=== PATIENT | male | born 1950 | race Caucasian/White ===

== ENCOUNTER 2017-06-23 06:58 | Day surgery (SDC) | payer BC, OTHER ==
--- NOTE | 2017-06-04 11:30 | HP ---
DATE OF ADMISSION: 06/23/2017 DATE OF DICTATION: 05/13/2017 Patient to be admitted to the [facility] in the near future, date to be determined. HISTORY: This is a 67-year-old man admitted through the Ambulatory Surgical Service at [facility] for excision of a soft tissue mass involving the right forehead. According to the patient, the mass has been there for some time. It had recently become larger in size and apparently was partially drained by his PMD. He describes a whitish material being expressed from the lesion itself. Patient's past medical history is significant for hypertension and hypercholesterolemia. No history of heart disease; diabetes; respiratory, renal or hepatic insufficiency. Past surgical history significant for excision of a soft tissue mass of the posterior neck, consistent with lipoma. ALLERGIES: PENICILLIN. REGULAR MEDICATIONS: Antihypertensives and hypercholesterolemics. SOCIAL HISTORY: Negative tobacco. Patient did smoke in the past. Positive alcohol, a glass of wine nightly. FAMILY HISTORY: Nil. REVIEW OF SYSTEMS: Nil. On inspection, the patient has an obvious 1.5-cm soft tissue mass over the pretemporal region of the right forehead. There is a shallow ulcer in the center of the mass. There are no satellite lesions or regional lymphadenopathy. IMPRESSION: Soft tissue mass, right forehead. Based on the patient's history, suspect epidural inclusion cyst. Cannot rule out some squamous cell neoplasia. PLAN: Patient to undergo excision, right forehead mass, under local anesthesia with sedation. Indications, alternatives, possible complications reviewed. Consent obtained. Patient to be seen preoperatively by Dr. Sam Leger. Please refer to his notes for those medical details. Babar BONILLA/[id number] cc: Sam Leger MD
[2017-06-23 07:32] VITALS: BMI 28.7
[2017-06-23] MEDS ORDERED: LIDOCAINE 1%/EPI 1:100000 (20 ML MULTI DOSE VIAL) ONE (07:43)
[2017-06-23] MEDS ORDERED: PROPOFOL 20 ML ONE (08:20)
[2017-06-23] MEDS ORDERED: LEVOFLOXACIN 25 MG/1 ML (20 ML VIAL) IVPB ONE (08:25)
[2017-06-23] MEDS ORDERED: LIDOCAINE 1%/EPI 1:100000 (50 ML MULTI DOSE VIAL) INF ONE ×2 (08:39)
[2017-06-23] MEDS ORDERED: BACITRACIN 15 GM TUBE TOPICAL OINTMENT ONE (08:46)
[2017-06-23 09:08] VITALS: PULSE 82; TEMP 97.7
[2017-06-23 09:30] VITALS: BP 113/62
--- NOTE | 2017-06-23 09:39 | OP ---
DATE OF OPERATION: 06/23/2017 PREOPERATIVE DIAGNOSIS: Soft tissue mass, right forehead. POSTOPERATIVE DIAGNOSIS: Soft tissue mass, right forehead (suspect epidermal inclusion cyst) . PROCEDURE: Excision, soft tissue mass, right forehead, intermediate wound closure (3 cm). OPERATING SURGEON: Ryan Sorto MD ANESTHESIA: Denisa Fraga MD (Local/MAC). HISTORY: A 67-year-old man with progressive enlargement of a 1.5-cm soft tissue mass of the right forehead closer to the methodist region. Presents for excision. Indications, alternatives, possible complications reviewed. Consent obtained. PROCEDURE: With the patient in the supine position, and with the head turned to the left, the right methodist area was prepped and draped in sterile fashion using Betadine. A 3-cm elliptical incision was made about the lesion and deepened into the subcutaneous space. The lesion was excised in its entirety with a rim of normal-appearing surrounding skin and underlying subcutaneous tissue. The wound was then irrigated and adequate hemostasis ensured. The wound was closed in layers. The deeper subcutaneous tissues were approximated using interrupted 3-0 chromic sutures. The subcuticular layer was approximated using interrupted 4-0 Biosyn sutures. The skin edges were approximated using continuous 5-0 nylon suture. Bacitracin applied. Procedure terminated. Needle and instrument counts correct. ESTIMATED BLOOD LOSS: Minimal. SPECIMEN: Soft tissue mass, right forehead. DRAINS: None. Patient tolerated procedure. The procedure was terminated. RYAN SORTO M.D. [id number] MTDD
--- NOTE | 2017-06-24 16:21 | PATH ---
Surgical Pathology Report Patient Name: [facility]. Rec. #: [id number] /Age/Gender: 1950 (Age: 67) / M Account: [id number] Location: [facility] AMB[facility] Taken: 06/23/2017 Received: 06/23/2017 Reported: 06/24/2017 Physicians: Ryan Sorto M.D. Specimen(s) Received SOFT TISSUE MASS, RIGHT FOREHEAD Clinical History Benign neoplasm/soft tissue mass right forehead Final Diagnosis FOREHEAD, RIGHT, SOFT TISSUE MASS, EXCISION: SEBORRHEIC KERATOSIS. Electronically Signed Ava Stock M.D. Gross Description Received in formalin labeled "soft tissue mass right forehead," is a 2.5 x 1.2 x 0.8 cm focally disrupted cystic structure. Bench Grinder sections are submitted in one cassette. /06/23/201706/23/2017
== END 2017-06-23 09:29 | disposition home or self-care (01) ==
LOC: FASU 06:58
PROVIDERS: ATTEND Surgery
PROC: 0JQ10ZZ Repair Face Subcutaneous Tissue and Fascia, Open Approach (ICD-10-PCS; 2017-06-23)
PROC: 0JB10ZX Excision of Face Subcutaneous Tissue and Fascia, Open Approach, Diagnostic (ICD-10-PCS; principal; 2017-06-23 08:29)
DX: D21.0 Benign neoplasm of connective and other soft tissue of head, face and neck (principal)
CPT/HCPCS: 88305-TC

== ENCOUNTER 2018-03-07 10:43 | Emergency (ER) | payer OTHER, BC ==
[2018-03-07 11:06] VITALS: BP 157/97; PULSE 90; TEMP 97.9; BMI 27.8
[2018-03-07] MEDS ORDERED: FLUORESCEIN NA 1 EA STRIP ONE (11:06)
[2018-03-07] MEDS ORDERED: TETRACAINE 0.5% OPHTH SOLN 2 ML BOTTLE ONE (11:06)
--- NOTE | 2018-03-07 11:32 | PDOC ---
History of Present Illness - General Chief Complaint: Eye Problem Stated Complaint: LEFT EYE PAIN Time Seen by Provider: 03/07/18 10:54 History Source: Patient Exam Limitations: No Limitations - History of Present Illness Initial Comments: 03/07/18 11:35 67y M presents with L eye pain. 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 he denies any blurry vision, nauasa.vomting. endorses pain in his Left eye. Past History - Past Medical History Allergies/Adverse Reactions: Allergies Allergy/AdvReac Type Severity Reaction Status Date / Time Penicillins Allergy Rash Verified 03/07/18 10:58 Home Medications: Ambulatory Orders Acetaminophen W/ Codeine #3 [Tylenol # 3 -] 1 tab PO Q4H PRN #12 tablet MDD 1 Ofloxacin 0.3% Ophth Soln [Ocuflox -] 1 drop OS QID 4 Days #1 bottle 03/07/18 Anemia: No Asthma: No Cancer: No Cardiac Disorders: No CVA: No COPD: No CHF: No Dementia: No Diabetes: No GI Disorders: No Disorders: No HTN: Yes Hypercholesterolemia: Yes Liver Disease: No Seizures: No Thyroid Disease: No - Surgical History Abdominal Surgery: No Appendectomy: No Cardiac Surgery: No Cholecystectomy: No Lung Surgery: No Neurologic Surgery: No Orthopedic Surgery: No - Suicide/Smoking/Psychosocial Hx Smoking History: Former smoker Have you smoked in the past 12 months: No If you are a former smoker, when did you quit?: 1994 Information on smoking cessation initiated: No Hx Alcohol Use: No Drug/Substance Use Hx: No Substance Use Type: None Hx Substance Use Treatment: No Review of Systems - Review of Systems Able to Perform ROS?: Yes Comments:: 03/07/18 11:36 Constitutional - no reported Fever, Chills, HEENT: +eye pain no reported vision changes, sore throat Abd/GI: no reported nausea, vomiting, neurological: no reported headache, hematologic: no reported easy bruising, easy bleeding *Physical Exam - Vital Signs Last Vital Signs Temp Pulse Resp BP Pulse Ox 97.9 F 90 16 157/97 100 03/07/18 10:44 03/07/18 10:44 03/07/18 10:44 03/07/18 10:44 05/21/18 10:44 - Physical Exam Comments: 03/07/18 11:37 GENERAL: The patient is awake, alert, and fully oriented, Nontoxic - in no acute distress. HEAD: Normocephalic, atraumatic. EYES: extraocular movements intact, sclera anicteric, conjunctiva clear, No FB noted including under lids, +3x3 area of flouriscene uptake on the cornea approx 5 o clock position, neg seidels sign ENT: Normal voice, Moist mucous membranes. NECK: Normal range of motion, supple Moderate Sedation - Procedure Monitoring Vital Signs: Vital Signs Temp Pulse Resp BP Pulse Ox 97.9 F 90 16 157/97 100 03/07/18 10:44 03/07/18 10:44 03/07/18 10:44 03/07/18 10:44 03/07/18 10:44 Medical Decision Making - Medical Decision Making 03/07/18 11:38 +corneal abrasion will give abx, tylenol 3 for pain control will have pt fu with optho return precutions were disussed I discussed the physical exam findings, ancillary test results and final diagnoses with the patient. I answered all of the patient's questions. The patient was satisfied with the care received and felt comfortable with the discharge plan and treatment plan. The patient will call their primary care physician within 24 hours to arrange follow-up and will return to the Emergency Department with any new, persistent or worsening symptoms. *DC/Admit/Observation/Transfer Diagnosis at time of Disposition: Corneal abrasion, left Qualifiers: Encounter type: initial encounter Qualified Code(s): S05.02XA - Injury of conjunctiva and corneal abrasion without foreign body, left eye, initial encounter - Discharge Dispostion Disposition: HOME Condition at time of disposition: Improved Decision to Admit order: No - Referrals Referrals: Clay Anthony MD [Staff Physician] - - Patient Instructions Printed Discharge Instructions: DI for Corneal Abrasion Additional Instructions: Return to the emergency department immediately with ANY new, persistent or worsening symptoms including any changes in your vision, headache, nausea/ vomiting or other concerns. Continue using the drops to prvent infection. Take the percocet as needed for pain. You MUST call and follow up with your eye doctor in 1-2 days for further evaluation of your symptoms. Results were discussed with you. Please make sure your doctor reviews the results of your emergency evaluation. - Post Discharge Activity Forms/Work/School Notes: Back to Work
[2018-03-07] MEDS ORDERED: ACETAMINOPHEN 325 MG TABLET (FP) PO ONE (11:44)
[2018-03-07] MEDS ORDERED: ACETAMINOPHEN 325 MG TABLET (FP) ONE (11:44)
== END 2018-03-07 11:46 | disposition home or self-care (01) ==
LOC: FER 10:43
DX: S05.02XA Injury of conjunctiva and corneal abrasion without foreign body, left eye, initial encounter (principal); W22.8XXA Striking against or struck by other objects, initial encounter; Y93.89 Activity, other specified; Y92.410 Unspecified street and highway as the place of occurrence of the external cause; Z87.891 Personal history of nicotine dependence; I10 Essential (primary) hypertension; E78.00 Pure hypercholesterolemia, unspecified
CPT/HCPCS: 99281-25

== ENCOUNTER 2018-07-06 07:57 | Day surgery (SDC) | payer BC ==
[2018-06-27 16:41] VITALS: BMI 29.8
[2018-07-06] MEDS: TROPICAMIDE 1% OPHTH SOLN 15 ML BOTTLE ONE ×3 (08:20→08:30)
[2018-07-06] MEDS: CIPROFLOXACIN 0.3% EYE DROPS 5 ML BOTTLE ONE ×3 (08:20→08:30)
[2018-07-06] MEDS: CYCLOPENTOLATE 2% OPHTH SOLN 2 ML BOTTLE ONE ×3 (08:20→08:30)
[2018-07-06] MEDS: PHENYLEPHRINE 2.5% OPHTH SOLN 15 ML BOTTLE ONE ×3 (08:20→08:30)
[2018-07-06] MEDS ORDERED: MIDAZOLAM HCL 2 MG/2 ML SINGLE DOSE VIAL ONE (10:00)
[2018-07-06] MEDS ORDERED: BSS (NA/CA/MG/K) BALANCED SALT SOLUTION OPHTH SOLN 15 ML BOTTLE ONE (10:04)
[2018-07-06] MEDS ORDERED: CARBACHOL 0.01% INTRA-OCULAR 1.5 ML VIAL ONE (10:04)
--- NOTE | 2018-07-06 11:47 | OP ---
DATE OF OPERATION: 07/06/2018 OPERATIVE PROCEDURE: Lens Phacoemulsification with Posterior Chamber Intraocular Lens Placement Left Eye PREOPERATIVE DIAGNOSIS: Visually Significant Cataract of Left Eye POSTOPERATIVE DIAGNOSIS: Visually Significant Cataract of Left Eye SURGEON: Sebastian Lara M.D. ANESTHESIA: MAC ANESTHESIOLOGIST: PROCEDURE: The patient was brought to the operating room and placed under monitored anesthesia care by Anesthesia. A drop of Tetracaine was then placed over the left eye. The patient was then prepped and draped in the usual sterile manner. A speculum was then placed over the left eye. The eye was then well irrigated with copious amounts of BSS (balanced salt solution). The operating microscope was then moved into position. A paracentesis was performed using a 15 degree blade. At this point 0.5 mL of 1% preservative-free lidocaine was injected into the anterior chamber. Amvisc plus was then injected into the anterior chamber. A clear corneal incision was then formed using a 2.2 mm keratome. A capsulorrhexis was then performed in a continuous circular fashion beginning with a cystotome, completed with an Utratas forceps. Hydrodissection was then performed using BSS on a cannula. The phaco probe was then introduced through the corneal wound and the cataract was removed using the phaco chop technique. Approximately 3 seconds of absolute phaco time was used. The remaining cortex was then removed using irrigation and aspiration with an I/A probe. The capsule was then filled with regular Amvisc and the capsule was noted to be intact. A previously selected foldable posterior chamber intraocular lens was then injected into the capsule through the corneal wound using a lens injector. It was then dialed into position using a Sinskey hook. The Amvisc was then removed using irrigation and aspiration. Miostat was then injected through the paracentesis to constrict the pupil. The paracentesis and corneal wound were then hydrated and noted to be water tight. A drop of Maxitrol was then placed over the eye. The speculum was removed and clear shield was taped over the eye. The patient tolerated the procedure well and there were no surgical complications. The patient was asked to follow up in my office the next day. SEBASTIAN LARA M.D. [id number]
[2018-07-06 12:04] VITALS: TEMP 98.5
[2018-07-06 12:10] VITALS: BP 125/70; PULSE 82
== END 2018-07-06 11:50 | disposition home or self-care (01) ==
LOC: FASU 07:57
PROVIDERS: ATTEND Ophthalmology
PROC: 08RK3JZ Replacement of Left Lens with Synthetic Substitute, Percutaneous Approach (ICD-10-PCS; principal; 2018-07-06 10:39)
DX: H26.8 Other specified cataract (principal)

== ENCOUNTER 2018-07-21 06:31 | Day surgery (SDC) | payer BC, OTHER ==
[2018-07-18 10:42] VITALS: BMI 30.1
[2018-07-21] MEDS: CYCLOPENTOLATE 2% OPHTH SOLN 2 ML BOTTLE ONE ×3 (07:00→07:10)
[2018-07-21] MEDS: PHENYLEPHRINE 2.5% OPHTH SOLN 15 ML BOTTLE ONE ×3 (07:00→07:10)
[2018-07-21] MEDS: CIPROFLOXACIN 0.3% EYE DROPS 5 ML BOTTLE ONE ×3 (07:00→07:10)
[2018-07-21] MEDS: TROPICAMIDE 1% OPHTH SOLN 15 ML BOTTLE ONE ×3 (07:00→07:10)
[2018-07-21] MEDS ORDERED: TETRACAINE 0.5% OPHTH SOLN 2 ML BOTTLE ONE (07:05)
[2018-07-21] MEDS ORDERED: LIDOCAINE 1% P/F 10 MG/ML VIAL ONE (07:05)
[2018-07-21] MEDS ORDERED: CARBACHOL 0.01% INTRA-OCULAR 1.5 ML VIAL ONE (07:06)
[2018-07-21] MEDS ORDERED: NEO/POLYMYX B SULF/DEXAMETH OPHTHALMIC 5ML BOTTLE ONE (07:06)
[2018-07-21] MEDS ORDERED: BSS (NA/CA/MG/K) BALANCED SALT SOLUTION OPHTH SOLN 15 ML BOTTLE ONE ×2 (07:06→07:43)
[2018-07-21] MEDS ORDERED: EPINEPHrine/PF 1 MG/1 ML (1:1,000) AMPULE ONE (07:09)
[2018-07-21] MEDS ORDERED: BSS (NA/CA/MG/K) BALANCED SALT SOLUTION OPHTH SOLN 15 ML BOTTLE OD ONE ×2 (07:22→08:30)
[2018-07-21] MEDS ORDERED: CARBACHOL 0.01% INTRA-OCULAR 1.5 ML VIAL IO ONE ×2 (07:22→08:30)
[2018-07-21] MEDS ORDERED: NEO/POLYMYX B SULF/DEXAMETH OPHTHALMIC 5ML BOTTLE OD ONE ×2 (07:22→08:40)
[2018-07-21] MEDS ORDERED: MIDAZOLAM HCL 2 MG/2 ML SINGLE DOSE VIAL ONE ×2 (07:44)
[2018-07-21] MEDS ORDERED: SUCCINYLCHOLINE CHLORIDE 200 MG/10 ML VIAL ONE (07:44)
[2018-07-21] MEDS ORDERED: TETRACAINE 0.5% HCL 0.6ML DROPPER.BOTTLE OD ONE (08:20)
[2018-07-21 08:54] VITALS: PULSE 77; TEMP 97.6
--- NOTE | 2018-07-21 09:20 | OP ---
DATE OF OPERATION: 07/21/2018 OPERATIVE PROCEDURE: Lens Phacoemulsification with Posterior Chamber Intraocular Lens Placement, Right Eye PREOPERATIVE DIAGNOSIS: Visually Significant Cataract of Right Eye POSTOPERATIVE DIAGNOSIS: Visually Significant Cataract of Right Eye SURGEON: Sebastian Lara M.D. ANESTHESIA: MAC ANESTHESIOLOGIST: PROCEDURE: The patient was brought to the operating room and placed under monitored anesthesia care by Anesthesia. A drop of Tetracaine was then placed over the right eye. The patient was then prepped and draped in the usual sterile manner. A speculum was then placed over the right eye. The eye was then well irrigated with copious amounts of BSS (balanced salt solution). The operating microscope was then moved into position. A paracentesis was performed using a 15 degree blade. At this point 0.5 mL of 1% preservative free-lidocaine was injected into the anterior chamber. Amvisc plus was then injected into the anterior chamber. A clear corneal incision was then formed using a 2.2 mm keratome. A capsulorrhexis was then performed in a continuous circular fashion beginning with a cystotome completed with an Utratas forceps. Hydrodissection was then performed using BSS on a cannula. The phaco probe was then introduced through the corneal wound and the cataract was removed using the phaco chop technique. Approximately 3 seconds of absolute phaco time was used. The remaining cortex was then removed using irrigation and aspiration with an I/A probe. The capsule was then filled with regular Amvisc and the capsule was noted to be intact. A previously selected foldable posterior chamber intraocular lens was then injected into the capsule through the corneal wound using a lens injector. It was then dialed into position using a Sinskey hook. The Amvisc was then removed using irrigation and aspiration. Miostat was then injected through the paracentesis to constrict the pupil. The paracentesis and corneal wound were then hydrated and noted to be water tight. A drop of Maxitrol was then placed over the eye. The speculum was removed and clear shield was taped over the eye. The patient tolerated the procedure well and there were no surgical complications. The patient was asked to follow up in my office the next day. SEBASTIAN LARA M.D. [id number]
[2018-07-21 09:23] VITALS: BP 126/72
== END 2018-07-21 09:25 | disposition home or self-care (01) ==
LOC: FASU 06:31
PROVIDERS: ATTEND Ophthalmology
PROC: 08RJ3JZ Replacement of Right Lens with Synthetic Substitute, Percutaneous Approach (ICD-10-PCS; principal; 2018-07-21 08:27)
DX: H26.8 Other specified cataract (principal)

== ENCOUNTER 2019-11-27 07:47 | Day surgery (SDC) | payer BC, OTHER ==
[2019-11-23 13:46] VITALS: BMI 32.1
[2019-11-27] MEDS ORDERED: PROPOFOL 20 ML ONE ×2 (08:54)
[2019-11-27 09:45] VITALS: TEMP 97.7
[2019-11-27 10:55] VITALS: BP 93/49; PULSE 78
== END 2019-11-27 10:00 | disposition home or self-care (01) ==
LOC: FASU-ENDO 07:47
PROVIDERS: ATTEND Internal Medicine Gastroenterology
PROC: 0DJD8ZZ Inspection of Lower Intestinal Tract, Via Natural or Artificial Opening Endoscopic (ICD-10-PCS; principal; 2019-11-27 09:20)
DX: Z12.11 Encounter for screening for malignant neoplasm of colon (principal); Z80.0 Family history of malignant neoplasm of digestive organs; K57.30 Diverticulosis of large intestine without perforation or abscess without bleeding

== ENCOUNTER 2024-08-01 04:01 | Emergency (ER) | payer BC, MEDICARE ==
[2024-08-01 04:11] VITALS: BMI 34.0
[2024-08-01] MEDS ORDERED: FAMOTIDINE 20 MG/50 ML IVPB 20 MG/50 ML MG IVPB ONE (05:07)
[2024-08-01] MEDS ORDERED: ACETAMINOPHEN INJECTION 100 ML ONE (05:07)
[2024-08-01] MEDS: FAMOTIDINE 20 MG/50 ML IVPB 20 MG/50 ML MG IVPB ONE (05:17)
[2024-08-01] MEDS: ACETAMINOPHEN 1000 MG/100 ML BAG IVPB ONE (05:17)
[2024-08-01] MEDS: SODIUM CHLORIDE 500 ML IV STA (05:17)
[2024-08-01] MEDS: morphine CARPU-JECT 2 MG/1 ML DISP.SYRIN IVPUSH ONE ×3 (05:48→07:44)
[2024-08-01 06:14] LABS: BASO % 0.7 % (0-2.0); EOS % 0.3 % (0-4.5); HEMATOCRIT 42.8 % (35.4-49); HEMOGLOBIN 14.3 GM/dL (11.7-16.9); LYMPH % 10.7 % (8-40); MCHC 33.3 g/dl (32.0-35.9); MEAN CELL VOLUME 84.1 fl (80-96); MONO % 5.4 % (3.8-10.2); NEUT % 82.9 % (42.8-82.8); PLATELET COUNT 202 10^3/uL (134-434); RBC 5.09 M/mm3 (4.00-5.60); RDW 13.7 % (11.9-15.9); WHITE BLOOD COUNT 10.4 K/mm3 (4.0-10.0)
[2024-08-01 06:17] LABS: EPI CELLS 1 /uL (0-25.1); HYALINE CASTS 0 /uL (0-3.1); URINE APPEARANCE CLEAR; URINE BACTERIA 29 /uL (0-1359); URINE BILIRUBIN NEGATIVE (NEGATIVE); URINE COLOR YELLOW; URINE GLUCOSE (UA) NEGATIVE (NEGATIVE); URINE KETONE NEGATIVE (NEGATIVE); URINE LEUK ESTERASE NEGATIVE (NEGATIVE); URINE NITRITE NEGATIVE (NEGATIVE); URINE PROTEIN NEGATIVE (NEGATIVE); URINE RBC 35 /uL (0-23.9); URINE UROBILINOGEN 0.2 mg/dL (0.2-1.0); URINE WBC 19 /uL (0-25.8)
[2024-08-01 06:33] LABS: POTASSIUM 3.8 mmol/L (3.5-5.1)
[2024-08-01 06:34] LABS: CALCIUM 9.8 mg/dL (8.5-10.1)
[2024-08-01 06:35] LABS: ALBUMIN 3.7 g/dl (3.4-5.0); BLOOD UREA NITROGEN 16.3 mg/dL (7-18)
[2024-08-01 06:39] LABS: CREATININE 0.9 mg/dL (0.55-1.3)
[2024-08-01 06:40] LABS: TOT PROT 7.6 g/dl (6.4-8.2)
[2024-08-01 06:51] VITALS: TEMP 98.1
[2024-08-01 06:51] LABS: BILIRUBIN,TOTAL 0.8 mg/dL (0.2-1)
[2024-08-01] MEDS ORDERED: MAGNESIUM CITRATE 300 ML BOTTLE ONE (08:36)
[2024-08-01] MEDS: MAGNESIUM CITRATE 300 ML BOTTLE PO ONE (08:38)
[2024-08-01] MEDS ORDERED: KETOROLAC TROMETHAMINE 15 MG/ML VIAL ONE (09:35)
[2024-08-01] MEDS: KETOROLAC TROMETHAMINE 15 MG/ML VIAL IVPUSH ONE (09:44)
[2024-08-01 09:55] VITALS: BP 121/64; PULSE 109; RESP 18
[2024-08-01] MEDS ORDERED: metroNIDAZOLE 250 MG TABLET ONE (11:29)
[2024-08-01] MEDS ORDERED: CIPROFLOXACIN 250 MG TABLET (RESTRICTED TO ID) PO ONE (11:30)
[2024-08-01] MEDS: metroNIDAZOLE 250 MG TABLET PO ONE (11:31)
[2024-08-01] MEDS: CIPROFLOXACIN 500 MG TABLET (RESTRICTED TO ID) PO ONE (11:31)
== END 2024-08-01 11:42 | disposition home or self-care (01) ==
LOC: FER 04:01
PROC: 3E033GC Introduction of Other Therapeutic Substance into Peripheral Vein, Percutaneous Approach (ICD-10-PCS; principal; 2024-08-01)
PROC: 3E033NZ Introduction of Analgesics, Hypnotics, Sedatives into Peripheral Vein, Percutaneous Approach (ICD-10-PCS; 2024-08-01)
PROC: 3E0333Z Introduction of Anti-inflammatory into Peripheral Vein, Percutaneous Approach (ICD-10-PCS; 2024-08-01)
PROC: 3E033NZ Introduction of Analgesics, Hypnotics, Sedatives into Peripheral Vein, Percutaneous Approach (ICD-10-PCS; 2024-08-01)
PROC: 3E033NZ Introduction of Analgesics, Hypnotics, Sedatives into Peripheral Vein, Percutaneous Approach (ICD-10-PCS; 2024-08-01)
PROC: 3E033NZ Introduction of Analgesics, Hypnotics, Sedatives into Peripheral Vein, Percutaneous Approach (ICD-10-PCS; 2024-08-01)
DX: K57.32 Diverticulitis of large intestine without perforation or abscess without bleeding (principal); R10.84 Generalized abdominal pain; R11.0 Nausea; R14.0 Abdominal distension (gaseous)
CPT/HCPCS: 36415; 71045-TC-FY; 74019-TC-FY; 74177-TC; 76705-TC; 80053; 81003; 82272; 83690; 84484; 85025; 93005; 99285-25; J0131; Q9967